=== PATIENT | female | born 1965 | race African-American/Black ===

== ENCOUNTER 2020-04-24 07:07 | Outpatient (CLI) | payer BC, OTHER ==
[2020-04-25 10:59] LABS: SARS-CoV-2 MS2 Positive; SARS-CoV-2 N Gene Negative; SARS-CoV-2 S Gene Negative; SARS-CoV-2 orf1ab Negative
== END 2020-04-24 07:08 | disposition home or self-care (01) ==
LOC: LABBT 07:07
PROVIDERS: ATTEND Internal Medicine Gastroenterology
DX: Z01.812 Encounter for preprocedural laboratory examination (principal); Z11.59 Encounter for screening for other viral diseases; Z12.11 Encounter for screening for malignant neoplasm of colon
CPT/HCPCS: 87635; U0003

== ENCOUNTER 2020-04-26 12:02 | Day surgery (SDC) | payer BC ==
[2020-04-26] MEDS ORDERED: PROPOFOL 200 MG/20 ML VIAL ONE (13:36)
[2020-04-26] MEDS ORDERED: Lidocaine 1% PF 5 ML VIAL ONE (13:36)
--- NOTE | 2020-04-26 22:01 | OP ---
DATE OF PROCEDURE: 04/26/2020 PROCEDURE PERFORMED: Colonoscopy. PREPROCEDURE DIAGNOSIS: Average risk colon cancer screening. POSTPROCEDURE DIAGNOSES: 1. Exam to cecum; suboptimal bowel preparation. 2. Approximately 25% of the colon was obscured by liquid and semi-solid fecal matter. 3. No obvious polyps identified. 4. No diverticula or vascular ectasia seen. 5. Small internal hemorrhoids. 6. Otherwise normal colonoscopy. PROCEDURE IN DETAIL: Written informed consent was obtained. The patient was brought to the endoscopy suite. Total intravenous anesthesia was administered by Dr. Sandoval Fabian and associates. The patient was placed in the left lateral decubitus position. A digital rectal exam was performed that was unremarkable. A Pentax video colonoscope was then inserted through the anal canal and advanced under direct visualization to the ileocecal valve. Due to some redundancy of the colon and the suboptimal bowel preparation, the colonoscope could not be advanced safely into the cecum itself. The quality of the bowel preparation was suboptimal. Approximately 25% of the colonic lumen was not well visualized due to the presence of liquid and semi-solid stool pooling in multiple areas of the colon. The colonic mucosa appeared grossly normal. There was no evidence of colitis or vascular ectasias. No obvious polyps were identified. However, due to the suboptimal bowel preparation, small lesions 6 mm or less could easily be missed. In the rectum, retroflexed view demonstrated small internal hemorrhoids that were not actively bleeding. The colon was decompressed as the colonoscope was completely removed from the patient. She was transferred to the Day Stay [facility] area for postprocedure monitoring. There were no immediate complications. RECOMMENDATIONS: 1. Resume previous diet and medications. 2. Would recommend repeating a colonoscopy within the next year with a more extended bowel preparation. 3. Follow up in GI clinic as needed. Job ID: [id number]
== END 2020-04-26 16:28 | disposition home or self-care (01) ==
LOC: SDC 12:02 → EEVIPCON 15:00 → SDC 16:28
PROVIDERS: ATTEND Internal Medicine Gastroenterology
PROC: 0DJD8ZZ Inspection of Lower Intestinal Tract, Via Natural or Artificial Opening Endoscopic (ICD-10-PCS; principal; 2020-04-26)
DX: Z12.11 Encounter for screening for malignant neoplasm of colon (principal); K64.8 Other hemorrhoids; I10 Essential (primary) hypertension; K21.9 Gastro-esophageal reflux disease without esophagitis; M19.90 Unspecified osteoarthritis, unspecified site; J45.909 Unspecified asthma, uncomplicated; F32.9 Major depressive disorder, single episode, unspecified; G47.30 Sleep apnea, unspecified; M79.7 Fibromyalgia; E66.9 Obesity, unspecified; Z68.44 Body mass index [BMI] 60.0-69.9, adult; Z79.899 Other long term (current) drug therapy
CPT/HCPCS: J2001; J2704

== ENCOUNTER 2021-09-30 10:06 | Outpatient (CLI) | payer BC ==
[2021-09-30 22:50] LABS: SARS-CoV-2 PCR by NAA Not Detected (NotDetected)
== END 2021-09-30 10:07 | disposition home or self-care (01) ==
LOC: LABBT 10:06
PROVIDERS: ATTEND Internal Medicine Gastroenterology
DX: Z01.812 Encounter for preprocedural laboratory examination (principal); Z12.11 Encounter for screening for malignant neoplasm of colon; Z63.9 Problem related to primary support group, unspecified; Z20.822 Contact with and (suspected) exposure to COVID-19
CPT/HCPCS: U0003; U0005

== ENCOUNTER 2021-12-09 09:50 | Outpatient (CLI) | payer BC ==
[2021-12-09 21:57] LABS: SARS-CoV-2 PCR by NAA Not Detected (NotDetected)
== END 2021-12-09 09:51 | disposition home or self-care (01) ==
LOC: LABBT 09:50
PROVIDERS: ATTEND Internal Medicine Gastroenterology
DX: Z01.812 Encounter for preprocedural laboratory examination (principal); Z20.822 Contact with and (suspected) exposure to COVID-19
CPT/HCPCS: U0003; U0005

== ENCOUNTER 2023-10-08 09:37 | Day surgery (SDC) | payer OTHER, BC ==
[2023-10-07 09:52] VITALS: BMI 51.7
[2023-10-08] MEDS ORDERED: Midazolam HCl 2 mg/2 ml Vial ONE (12:28)
[2023-10-08] MEDS ORDERED: KETAMINE 100 MG/ML (5ML VIAL) ONE (12:28)
[2023-10-08] MEDS ORDERED: PROPOFOL 200 MG/20 ML VIAL ONE (12:40)
[2023-10-08] MEDS ORDERED: Lidocaine 1% PF 5 ML VIAL ONE (12:40)
== END 2023-10-08 13:46 | disposition home or self-care (01) ==
LOC: SDC 09:37
PROVIDERS: ATTEND Internal Medicine Gastroenterology
PROC: 0DJD8ZZ Inspection of Lower Intestinal Tract, Via Natural or Artificial Opening Endoscopic (ICD-10-PCS; principal; 2023-10-08)
DX: K64.8 Other hemorrhoids (principal); Z12.11 Encounter for screening for malignant neoplasm of colon; Q43.8 Other specified congenital malformations of intestine; J45.909 Unspecified asthma, uncomplicated; K21.9 Gastro-esophageal reflux disease without esophagitis; E78.00 Pure hypercholesterolemia, unspecified; F32.A Depression, unspecified; E66.9 Obesity, unspecified; Z68.43 Body mass index [BMI] 50.0-59.9, adult; Z90.49 Acquired absence of other specified parts of digestive tract; Z79.899 Other long term (current) drug therapy
CPT/HCPCS: 93005; 93010; J2250; J2704